=== PATIENT | female | born 1955 | race Caucasian/White ===

== ENCOUNTER 2023-11-17 05:57 | Outpatient (CLI) | payer BC | END 2023-11-17 23:59 | disposition critical access hospital (66) | LOC: EMS 05:57 | DX: S89.91XA Unspecified injury of right lower leg, initial encounter (principal); M25.561 Pain in right knee; M25.661 Stiffness of right knee, not elsewhere classified; W01.198A Fall on same level from slipping, tripping and stumbling with subsequent striking against other object, initial encounter; Y93.01 Activity, walking, marching and hiking; Y92.008 Other place in unspecified non-institutional (private) residence as the place of occurrence of the external cause | CPT/HCPCS: A0425; A0429 ==

== ENCOUNTER 2023-11-17 06:47 | Emergency (ER) | payer BC ==
--- NOTE | 2023-11-17 08:04 | XRAY Report ---
PROCEDURE: Knee 3V RT INDICATIONS: GLF pain to knee TECHNIQUE: 3 views of the knee were acquired. COMPARISON: None. FINDINGS: Bones: Questionable mild depression of the lateral tibial plateau articular surface seen on lateral view only. No suspicious bony lesions. Soft tissues: Moderate knee joint effusion with suspected fat-fluid levels suspicious for lipohemart hrosis. No suspicious soft tissue calcifications. IMPRESSION: Moderate lipohemarthrosis. Questionable lateral tibial plateau fracture suggested on one view only. R ecommend CT or MRI for further evaluation. Reviewed by: Fletcher Arias MD on 11/17/2023 8:02 AM PDT Approved by: Fletcher Arias MD on 11/17/2023 8:02 AM PDT Station ID: [id number]
--- NOTE | 2023-11-17 08:06 | ED Physician Documentation ---
PD HPI LOWER EXT INJURY - Stated complaint Stated Complaint: GLF - Chief complaint Chief Complaint: Trauma Ext - History obtained from History obtained from: Patient - History of Present Illness PD HPI LOW EXT INJURY LOCATION: Right, Knee Type of injury: Fall, Twist (going down steps and missed a stair, with twisting of knee in valgus stress and knee ended under her. Pain in knee without able to stand/bear weight.) Where injury occurred: Home Timing - onset: Today Timing - details: Abrupt onset, Still present Associated symptoms: Swelling. No: Weakness, Numbness Contributing factors: Prior ortho surgery (has had right knee scope for meniscal injury several years ago.). No: Anticoagulated Review of Systems Skin: denies: Abrasion (s), Laceration (s) Neurologic: denies: Generalized weakness, Near syncope, Confused, Altered mental status, Headache PD PAST MEDICAL HISTORY - Past Medical History Past Medical History: No - Past Surgical History Past Surgical History: Yes Ortho: Knee replacement - Present Medications Home Medications: Ambulatory Orders Medication Instructions Recorded Confirmed HYDROcod/ACETAM 5/325 [[place] 5/325] 1 ea PO Q6H PRN #20 tablet 11/17/23 Meloxicam [Mobic] 7.5 mg PO BID 10 Days #20 tablet 11/17/23 - Allergies Allergies/Adverse Reactions: Allergies Allergy/AdvReac Type Severity Reaction Status Date / Time naproxen [From Aleve] Allergy Anaphylaxis Verified 11/17/23 09:50 - Social History Does the pt smoke?: No Smoking Status: Never smoker Does the pt drink ETOH?: No Does the pt have substance abuse?: No - Immunizations Immunizations are current?: Yes - POLST Patient has POLST: No PD ED PE NORMAL - Vitals Vital signs reviewed: Yes - General General: Alert and oriented X 3, No acute distress, Well developed/nourished - HEENT HEENT: Atraumatic - Neck Neck: Supple, no meningeal sign, No bony TTP - Derm Derm: Normal color, Warm and dry - Extremities Extremities: Other (right knee with effusion and limited ROM due to pain. Tender anteriorly mostly but some to medial and posteiroir aspect. Too painful to test ligament integrity. No gross translation of lower leg from upper with gentle passive movement. ) - Neuro Neuro: Alert and oriented X 3, No motor deficit, No sensory deficit, Normal speech Results - Vitals Vitals: Vital Signs - 24 hr 11/17/23 11/17/23 11/17/23 06:48 08:51 09:51 Temperature 36.3 C L Heart Rate 76 71 66 Respiratory 16 18 14 Rate Blood Pressure 131/73 H 158/88 H 146/74 H O2 Saturation 98 98 100 11/17/23 11:00 Temperature Heart Rate 78 Respiratory 18 Rate Blood Pressure 122/82 H O2 Saturation 100 Oxygen O2 Source Room air - Rads (name of study) right knee Relevant Findings:: Prelim report reviewed (effusion and possible plateau fracture line seen. ), EMP independent interpretation of test right knee CT Relevant Findings:: Prelim report reviewed (more distnict view of the plateau fracture, minimally depressed.. ), EMP independent interpretation of test PD Medical Decision Making - ED course Complexity details: considered differential (plateau fracture of knee at least, and consider ligamentous concurrent injuries. Will need reassess when swelling/effusion improving, in Ortho. ), d/w patient Departure - Departure Disposition: 01 Home, Self Care Clinical Impression: Knee internal derangement Tibial plateau fracture, right Qualifiers: Encounter type: initial encounter Fracture type: closed Qualified Code(s): S82.141A - Displaced bicondylar fracture of right tibia, initial encounter for closed fracture Condition: Stable Instructions: ED Fx Knee, ED Knee Injury Cruciate Ligament Follow-Up: Orthopedic Care [Provider Group] Prescriptions: Meloxicam [Mobic] 7.5 mg PO BID 10 Days #20 tablet HYDROcod/ACETAM 5/325 [[place] 5/325] 1 ea PO Q6H PRN #20 tablet PRN Reason: Pain Comments: Your x-ray and CT scan show a plateau fracture of the tibia. It is nondisplaced. Use the knee brace to support the knee. Partial weightbearing is allowed with a walker and not necessarily needing crutches per se. Try to minimize the amount of walking. Ice elevate and rest the knee often. The goal is to have the swelling go down in order to follow-up with orthopedics so they can best examine and decide on subsequent treatments. Use the anti-inflammatory. I wrote for 1 called meloxicam which is just twice a day. To that add acetaminophen/Tylenol 500 to 650 mg 4 times daily regularly for the next week or so. Add hydrocodone every 4-6 hours if needed for worse pain. Call the orthopedic office tomorrow for follow-up appointment at their discretion. Likely end of the week. I sent your prescriptions to your preferred pharmacy. I am prescribing a short course of narcotic pain medication for you. These are potentially dangerous and addictive medications that should be used carefully. These medications may constipate you. Take an [id number] stool softener such as docusate twice daily with plenty of water while taking these medications. If you go 24 hours without a bowel movement, take [id number] MiraLAX, per package instructions. Do not drink or drive while taking these medications. If you received narcotic or sedating medications while in the emergency department do not drive for 24 hours. Store this medication in a safe, secure place and out of reach of children. It is a violation of federal law to give or sell this medication to another person or to use in a manner other than prescribed. The ED will not refill narcotic prescriptions, including prescriptions lost or stolen. You can dispose of unwanted medications at the [facility]'s office or at several pharmacies such as [facility]. Forms: PCP List Discharge Date/Time: 11/17/23 12:15
[2023-11-17] MEDS: KETOROLAC 30 MG/ML VIAL IM STA (08:24)
[2023-11-17] MEDS: ACETAMINOPHEN 500 MG TABLET PO STA (08:25)
[2023-11-17] MEDS: HYDROmorphone 1 MG/ML CARPUJECT IM STA (09:00)
[2023-11-17] MEDS: HYDROmorphone 0.5 MG/0.5 ML SYRINGE IM STA (09:27)
[2023-11-17] MEDS: oxyCODONE 5 MG TABLET PO STA (09:47)
[2023-11-17 09:58] VITALS: O2SAT 100
--- NOTE | 2023-11-17 10:29 | CT Report ---
PROCEDURE: Lower Extremity RT WO INDICATIONS: possible plateau fx on xray TECHNIQUE: Noncontrast 3-mm axial sections acquired from the distal tibial shaft to the talar dome, with coronal and sagittal reformats. For radiation dose reduction, the following was used: automated exposure c ontrol, adjustment of mA and/or kV according to patient size. COMPARISON: Correlation is made with the accompanying imaging. FINDINGS: Image quality: Excellent. Bones: There is a comminuted fracture of the right lateral tibial plateau, with depression of up to 5 mm. Comminuted fracture lines are seen. There is a longitudinally oriented fracture line seen withi n the posterior cortex of the tibia, as on series 11 image 56. No additional fracture lines are seen. Generalized degenerative changes are seen. Soft tissues: There is a likely hemarthrosis seen. Mild generalized soft tissue swelling is seen. Impression: Depressed comminuted fracture of the right lateral tibial plateau, with an associated lip ohemarthrosis. Reviewed by: Mele Noel MD on 11/17/2023 9:28 AM DEREK Approved by: Mele Noel MD on 11/17/2023 9:28 AM DEREK Station ID: [id number]
[2023-11-17 12:22] VITALS: BP 122/82
--- NOTE | 2023-11-18 09:03 | ED Physician Documentation ---
ED Addendum - Addendum Addendum: 11/18/23 09:01 The prescription was not electronically sent by the original provider, therefore the prescriptions were resent electronically. Any controlled substances had to be cancelled and reordered in order to be sent electronically.
== END 2023-11-17 12:15 | disposition home or self-care (01) ==
LOC: ED 06:47
DX: M23.91 Unspecified internal derangement of right knee (principal); S82.141A Displaced bicondylar fracture of right tibia, initial encounter for closed fracture; W10.9XXA Fall (on) (from) unspecified stairs and steps, initial encounter; Y93.89 Activity, other specified; X50.1XXA Overexertion from prolonged static or awkward postures, initial encounter
CPT/HCPCS: 73562; 73700; 96372; 99283; 99284; A9270; J1170

== ENCOUNTER 2023-12-18 09:33 | Outpatient (CLI) | payer BC ==
--- NOTE | 2023-12-18 19:42 | XRAY Report ---
PROCEDURE: Knee 4+V RT INDICATIONS: PAIN IN RT KNEE TECHNIQUE: 3 views of the knee was obtained. COMPARISON: 11/17/2023 FINDINGS: Bones: Linear sclerosis noted involving the lateral tibial plateau without significant depression Mo derate medial and lateral compartmental joint space narrowing Soft tissues: Small knee joint effusion. No suspicious soft tissue calcifications or masses. IMPRESSION: Healing lateral tibial plateau fracture with small joint effusion Reviewed by: Cory Stack MD on 12/18/2023 6:41 PM AKDT Approved by: Cory Stack MD on 12/18/2023 6:41 PM AKDT Station ID: [id number]
== END 2023-12-18 09:34 | disposition home or self-care (01) ==
LOC: DI.S 09:33
PROVIDERS: ATTEND Orthopaedic Surgery
DX: S82.141D Displaced bicondylar fracture of right tibia, subsequent encounter for closed fracture with routine healing (principal); M25.461 Effusion, right knee